=== PATIENT | male | born 1940 | race Caucasian/White ===

== ENCOUNTER 2017-06-02 11:09 | Emergency (ER) | payer MEDICARE, OTHER ==
[~2017-06-02] VITALS: Ht 165.1 cm; Wt 75.0 kg
[~2017-06-02 11:09] MED LIST: LIPITOR
[2017-06-02 16:03] VITALS: BP 169/78
[2017-06-02] MEDS ORDERED: BACITRACIN ZINC OINT UDPKT TOP ONE (16:30)
== END 2017-06-02 17:55 | disposition home or self-care (01) ==
LOC: ER 11:56
DX: S01.81XA Laceration without foreign body of other part of head, initial encounter (principal); E78.00 Pure hypercholesterolemia, unspecified; G80.9 Cerebral palsy, unspecified; Z86.73 Personal history of transient ischemic attack (TIA), and cerebral infarction without residual deficits; W18.30XA Fall on same level, unspecified, initial encounter; Y93.89 Activity, other specified; Y92.89 Other specified places as the place of occurrence of the external cause; Y99.8 Other external cause status
CPT/HCPCS: 12011; 70450; 70486; 99284

== ENCOUNTER → 2018-02-24 | Outpatient (CLI) | payer MEDICARE, OTHER | END | disposition home or self-care (01) | LOC: MRI 09:41 | PROVIDERS: ATTEND Internal Medicine Pulmonary Disease | DX: I67.82 Cerebral ischemia (principal); G31.89 Other specified degenerative diseases of nervous system | CPT/HCPCS: 70551 ==

== ENCOUNTER 2018-09-14 09:12 | Emergency (ER) | payer MEDICARE, OTHER ==
[~2018-09-14] VITALS: Ht 167.6 cm; Wt 73.0 kg
[2018-09-14 14:37] LABS: EOSINOPHILS % 1.1 % (0.0-5.0); HEMATOCRIT. 44.1 % (42.0-52.0); HEMOGLOBIN. 14.9 g/dL (14.0-18.0); LYMPHOCYTES % 22.9 % (20.0-50.0); MEAN CORPUSCULAR HEMOGLOBIN 28.8 pg (28.0-32.0); MEAN CORPUSCULAR VOLUME 85.2 fL (80.0-94.0); MEAN PLATELET VOLUME 9.1 fl (7.4-10.4); MONOCYTES % 6.3 % (2.0-8.0); NEUTROPHILS % 68.7 % (40.0-76.0); PLATELET 204 x1000/uL (130-400); RED BLOOD CELL COUNT 5.18 mill/uL (4.7-6.1); RED CELL DISTRIBUTION WIDTH 21.4 % (11.6-14.6)
[2018-09-14 14:46] LABS: PARTIAL THROMBOPLASTIN TIME 26.7 sec (23.4-31.0); PROTHROMBIN TIME 10.4 sec (9.6-11.0)
[2018-09-14] MEDS ORDERED: ACETAMINOPHEN 325MG TABLET PO STA (14:58)
[2018-09-14 15:10] VITALS: BP 125/85
== END 2018-09-14 15:11 | disposition home or self-care (01) ==
LOC: ER 09:12
DX: S70.01XA Contusion of right hip, initial encounter (principal); E78.00 Pure hypercholesterolemia, unspecified; I69.351 Hemiplegia and hemiparesis following cerebral infarction affecting right dominant side; Z98.890 Other specified postprocedural states; W01.0XXA Fall on same level from slipping, tripping and stumbling without subsequent striking against object, initial encounter; Y93.89 Activity, other specified; Y92.018 Other place in single-family (private) house as the place of occurrence of the external cause
CPT/HCPCS: 36415; 72192; 73502; 73700; 99284

== ENCOUNTER 2019-11-12 16:37 | Inpatient (IN) | payer MEDICARE, OTHER ==
[~2019-11-12] VITALS: Ht 170.2 cm; Wt 67.1 kg
[~2019-11-12 16:37] MED LIST changes: +AMLO2.5T45 PO; +ATOR10TA MT; +COR3 PO; -LIPITOR
[2019-11-12 18:18] LABS: BASOPHILS % 0.7 % (0.0-2.0); EOSINOPHILS % 0.5 % (0.0-5.0); HEMATOCRIT. 38.4 % (42.0-52.0); HEMOGLOBIN. 13.2 g/dL (14.0-18.0); LYMPHOCYTES % 22.9 % (20.0-50.0); MEAN CORPUSCULAR HEMOGLOBIN 29.6 pg (28.0-32.0); MEAN CORPUSCULAR VOLUME 86.4 fL (80.0-94.0); MEAN PLATELET VOLUME 9.8 fl (7.4-10.4); MONOCYTES % 5.3 % (2.0-8.0); NEUTROPHILS % 70.6 % (40.0-76.0); PLATELET 174 x1000/uL (130-400); RED BLOOD CELL COUNT 4.45 mill/uL (4.7-6.1); RED CELL DISTRIBUTION WIDTH 18.8 % (11.6-14.6)
[2019-11-12 18:23] LABS: CHLORIDE 108 mEq/L (98-107)
[2019-11-12] MEDS ORDERED: PIPERACILLIN SODIUM/TAZOBACTAM 4.5 G in DEXT 5% WATER 100 ML IV SCH (19:00)
[2019-11-12] MEDS ORDERED: IOHEXOL-300 100 ML BOTTLE ONE (19:30)
[2019-11-12] MEDS ORDERED: DEXAMETHASONE 4MG/ML 1ML VIAL IV NR (20:30)
[2019-11-12] MEDS: CIPROFLOXACIN 0.3% OPHTH SOLN 2.5ML BOTHEYE SCH (21:00)
[2019-11-12] MEDS ORDERED: CEFAZOLIN 1000MG PREMIX 50 ML IV ONE (23:55)
[2019-11-13] MEDS: NEO/POLYMYX B SULF/DEXAMETH OPHTH OINT 3.5GM RIGHTEYE SCH ×4 (00:19→23:22)
[2019-11-13] MEDS ORDERED: CEFAZOLIN 1000MG PREMIX 50 ML IV ONE (06:30)
[2019-11-13] MEDS: CIPROFLOXACIN 0.3% OPHTH SOLN 2.5ML BOTHEYE SCH ×3 (10:17→22:12)
[2019-11-13] MEDS ORDERED: ACETAMINOPHEN 325MG TABLET PO PRN (14:45)
[2019-11-13 15:56] VITALS: BP 138/68
[2019-11-13 16:00] VITALS: BP 150/71
[2019-11-13] MEDS: CEFAZOLIN 1000MG PREMIX 50 ML IV SCH ×2 (17:28→23:33)
[2019-11-13] MEDS: ENOXAPARIN 40MG/0.4ML SYR SUBCUT SCH (17:28)
[2019-11-13 20:00] VITALS: BP 110/55
[2019-11-13] MEDS ORDERED: CEFAZOLIN SODIUM 1000MG/VIAL IV SCH (22:00)
[2019-11-13] MEDS: ATORVASTATIN CALCIUM 40MG TABLET PO SCH (22:12)
[2019-11-14] VITALS: BP 122/46
[2019-11-14 04:00] VITALS: BP 132/57
[2019-11-14] MEDS: NEO/POLYMYX B SULF/DEXAMETH OPHTH OINT 3.5GM RIGHTEYE SCH ×2 (05:29→12:42)
[2019-11-14 08:00] VITALS: BP 145/61
[2019-11-14] MEDS: CEFAZOLIN 1000MG PREMIX 50 ML IV SCH ×3 (08:30→23:36)
[2019-11-14] MEDS: CIPROFLOXACIN 0.3% OPHTH SOLN 2.5ML BOTHEYE SCH ×4 (08:31→20:23)
[2019-11-14 12:00] VITALS: BP 116/63
[2019-11-14] MEDS ORDERED: DEXAMETHASONE 4MG/ML 1ML VIAL IV NR (13:45)
[2019-11-14 16:00] VITALS: BP 122/67
[2019-11-14] MEDS: ENOXAPARIN 40MG/0.4ML SYR SUBCUT SCH (16:49)
[2019-11-14] MEDS: NEOMY SULF/BACITRAC ZN/POLY/HC 1 APP TUBE RIGHTEYE SCH ×2 (17:10→23:37)
[2019-11-14] MEDS: PREDNISOLONE ACETATE 1% OPHTH DROPS 5ML BOTHEYE SCH ×2 (17:10→23:37)
[2019-11-14 20:00] VITALS: BP 115/68
[2019-11-14] MEDS: ATORVASTATIN CALCIUM 40MG TABLET PO SCH (20:22)
[2019-11-15] VITALS: BP 133/60
[2019-11-15 04:00] VITALS: BP_SYST 127; BP_SYST 133; BP_DIAS 66; BP_DIAS 71
[2019-11-15] MEDS: PREDNISOLONE ACETATE 1% OPHTH DROPS 5ML BOTHEYE SCH ×3 (06:45→17:20)
[2019-11-15] MEDS: NEOMY SULF/BACITRAC ZN/POLY/HC 1 APP TUBE RIGHTEYE SCH ×3 (06:45→17:20)
[2019-11-15 08:00] VITALS: BP 122/59
[2019-11-15] MEDS: CEFAZOLIN 1000MG PREMIX 50 ML IV SCH ×2 (09:32→16:59)
[2019-11-15] MEDS: CIPROFLOXACIN 0.3% OPHTH SOLN 2.5ML BOTHEYE SCH ×4 (09:32→21:15)
[2019-11-15 12:00] VITALS: BP 136/73
[2019-11-15 16:00] VITALS: BP 127/60
[2019-11-15] MEDS: ENOXAPARIN 40MG/0.4ML SYR SUBCUT SCH (16:59)
[2019-11-15 20:00] VITALS: BP 116/53
[2019-11-15] MEDS: ATORVASTATIN CALCIUM 40MG TABLET PO SCH (21:14)
[2019-11-16] VITALS: BP 100/51
[2019-11-16] MEDS: CEFAZOLIN 1000MG PREMIX 50 ML IV SCH ×2 (00:17→09:56)
[2019-11-16] MEDS: PREDNISOLONE ACETATE 1% OPHTH DROPS 5ML BOTHEYE SCH ×3 (00:17→13:01)
[2019-11-16] MEDS: NEOMY SULF/BACITRAC ZN/POLY/HC 1 APP TUBE RIGHTEYE SCH ×3 (00:17→13:01)
[2019-11-16 04:00] VITALS: BP 118/61
[2019-11-16 08:00] VITALS: BP 145/66
[2019-11-16] MEDS: CIPROFLOXACIN 0.3% OPHTH SOLN 2.5ML BOTHEYE SCH ×2 (09:12→13:01)
== END 2019-11-16 16:51 | disposition home or self-care (01) | DRG 121 ==
LOC: ER 16:37 → 6EST 19:58 → ENRESERV 11-13 12:57
PROVIDERS: ADMIT Internal Medicine Pulmonary Disease; ATTEND Internal Medicine Pulmonary Disease
DX: H05.011 Cellulitis of right orbit (principal); G81.91 Hemiplegia, unspecified affecting right dominant side; S05.11XA Contusion of eyeball and orbital tissues, right eye, initial encounter; E78.5 Hyperlipidemia, unspecified; M47.812 Spondylosis without myelopathy or radiculopathy, cervical region; E78.00 Pure hypercholesterolemia, unspecified; R29.6 Repeated falls; W18.39XA Other fall on same level, initial encounter; Z86.73 Personal history of transient ischemic attack (TIA), and cerebral infarction without residual deficits; Z79.899 Other long term (current) drug therapy; Y93.89 Activity, other specified; Y92.89 Other specified places as the place of occurrence of the external cause; Y99.8 Other external cause status; Z90.49 Acquired absence of other specified parts of digestive tract
CPT/HCPCS: 36415; 70481; 80053; 85025; 96365; 97116; 97162; 97535; 99285; J0690; J1100; J1650; J2543; J7060; Q9967

== ENCOUNTER 2019-12-11 06:10 | Emergency (ER) | payer MEDICARE, OTHER ==
[~2019-12-11] VITALS: Ht 167.6 cm; Wt 73.0 kg
[2019-12-11] MEDS ORDERED: BACITRACIN ZINC OINT UDPKT TOP ONE (07:30)
[2019-12-11] MEDS ORDERED: TETANUS, DIPHTHERIA, PERTUSSIS VAC/PF 0.5ML (>7YR OLD) IM ONE (07:30)
[2019-12-11 10:25] VITALS: BP 151/77
== END 2019-12-11 10:26 | disposition home or self-care (01) ==
LOC: ER 06:10
DX: S00.81XA Abrasion of other part of head, initial encounter (principal); I10 Essential (primary) hypertension; G93.89 Other specified disorders of brain; Z79.899 Other long term (current) drug therapy; W01.0XXA Fall on same level from slipping, tripping and stumbling without subsequent striking against object, initial encounter; Y93.89 Activity, other specified; Y92.89 Other specified places as the place of occurrence of the external cause; Y99.8 Other external cause status
CPT/HCPCS: 70486; 72170; 90471; 90715; 99285

== ENCOUNTER → 2020-03-26 | Outpatient (CLI) | payer MEDICARE, OTHER | END | disposition home or self-care (01) | LOC: RAD 11:27 | PROVIDERS: ATTEND Internal Medicine Pulmonary Disease | DX: Z01.812 Encounter for preprocedural laboratory examination (principal); I21.29 ST elevation (STEMI) myocardial infarction involving other sites | CPT/HCPCS: 71045; 93005 ==

== ENCOUNTER 2020-06-07 10:25 | Inpatient (IN) | payer MEDICARE, OTHER ==
[~2020-06-07] VITALS: Ht 167.6 cm; Wt 47.6 kg
[2020-06-07] MEDS ORDERED: SODIUM CHLORIDE 0.9% 500 ML IV ONE (10:45)
[2020-06-07 11:07] LABS: BASOPHILS % 0.4 % (0.0-2.0); EOSINOPHILS % 0.2 % (0.0-5.0); HEMATOCRIT. 45.7 % (42.0-52.0); HEMOGLOBIN. 15.2 g/dL (14.0-18.0); LYMPHOCYTES % 16.6 % (20.0-50.0); MEAN CORPUSCULAR HEMOGLOBIN 28.4 pg (28.0-32.0); MEAN CORPUSCULAR VOLUME 85.5 fL (80.0-94.0); MEAN PLATELET VOLUME 9.1 fl (7.4-10.4); MONOCYTES % 6.1 % (2.0-8.0); NEUTROPHILS % 76.7 % (40.0-76.0); PLATELET 126 x1000/uL (130-400); RED BLOOD CELL COUNT 5.35 mill/uL (4.7-6.1); RED CELL DISTRIBUTION WIDTH 21.1 % (11.6-14.6)
[2020-06-07 11:20] LABS: CHLORIDE 104 mEq/L (98-107)
[2020-06-07] MEDS ORDERED: LEVOFLOXACIN 750MG PREMIX 150 ML IV ONE (11:30)
[2020-06-07 11:32] LABS: ETHANOL BLOOD < 10 mg/dL
[2020-06-07 11:34] LABS: CREATINE KINASE 155 IU/L (39-308)
[2020-06-07 11:40] LABS: CLARITY URINE CLOUDY (CLEAR); COLOR URINE DARK YELLOW (YELLOW); KETONES URINE TRACE (NEGATIVE); LEUKOCYTE ESTERASE URINE 2+ (NEGATIVE); NITRITE URINE POSITIVE (NEGATIVE); OCCULT BLOOD URINE 3+ (NEGATIVE); PH URINE 5.5 (4.5-8.0); PROTEIN URINE 1+ (NEGATIVE); SPECIFIC GRAVITY URINE 1.028 (1.005-1.030)
[2020-06-07 12:43] LABS: *AMPHETAMINES SCREEN URINE NEGATIVE (NEGATIVE); *BARBITURATES SCREEN URINE NEGATIVE (NEGATIVE); *BENZODIAZEPINES SCREEN URINE NEGATIVE (NEGATIVE)
[2020-06-07 12:44] LABS: *COCAINE SCREEN URINE NEGATIVE (NEGATIVE); METHADONE URINE SCREEN NEGATIVE (NEGATIVE); OPIATES URINE SCREEN NEGATIVE (NEGATIVE); PHENCYCLIDINE URINE SCREEN NEGATIVE (NEGATIVE)
[2020-06-07 12:46] LABS: CANNABINOID URINE SCREEN NEGATIVE (NEGATIVE)
[2020-06-08] MEDS ORDERED: SULFAMETHOXAZOLE/TRIMETHOPRIM 800/160MG TABLET PO NR (18:00)
[2020-06-08] MEDS ORDERED: CEFTRIAXONE 1 G PREMIX 50 ML IV SCH (18:00)
[2020-06-08] MEDS ORDERED: ENOXAPARIN 40MG/0.4ML SYR SUBCUT NR (19:05)
[2020-06-08] MEDS: ATORVASTATIN CALCIUM 40MG TABLET PO SCH (21:02)
[2020-06-09 05:25] LABS: BASOPHILS % 0.2 % (0.0-2.0); EOSINOPHILS % 0.2 % (0.0-5.0); HEMATOCRIT. 42.2 % (42.0-52.0); HEMOGLOBIN. 13.9 g/dL (14.0-18.0); LYMPHOCYTES % 18.5 % (20.0-50.0); MEAN CORPUSCULAR HEMOGLOBIN 28.1 pg (28.0-32.0); MEAN CORPUSCULAR VOLUME 85.5 fL (80.0-94.0); MEAN PLATELET VOLUME 9.1 fl (7.4-10.4); MONOCYTES % 6.8 % (2.0-8.0); NEUTROPHILS % 74.3 % (40.0-76.0); PLATELET 125 x1000/uL (130-400); RED BLOOD CELL COUNT 4.94 mill/uL (4.7-6.1); RED CELL DISTRIBUTION WIDTH 21.9 % (11.6-14.6)
[2020-06-09 05:29] LABS: CHLORIDE 106 mEq/L (98-107)
[2020-06-09 05:38] LABS: PHOSPHORUS 3.2 mg/dL (2.5-4.9)
[2020-06-09 10:45] VITALS: BP 110/34
[2020-06-09] MEDS: ENOXAPARIN 40MG/0.4ML SYR SUBCUT SCH (14:25)
[2020-06-09] MEDS: SULFAMETHOXAZOLE/TRIMETHOPRIM 800/160MG TABLET PO SCH ×2 (14:25→21:50)
[2020-06-09 15:53] VITALS: BP 150/34
[2020-06-09 16:00] VITALS: BP 118/42
[2020-06-09] MEDS ORDERED: CEFTRIAXONE 1 G PREMIX 50 ML IV SCH (18:00)
[2020-06-09] MEDS: CEFTRIAXONE 1,000 MG in DEXTROSE 5% WATER 50 ML IV SCH (18:11)
[2020-06-09 20:00] VITALS: BP 120/59
[2020-06-09] MEDS: ATORVASTATIN CALCIUM 40MG TABLET PO SCH (21:50)
[2020-06-10] VITALS: BP 127/57
[2020-06-10 04:00] VITALS: BP 126/53
[2020-06-10] MEDS: ENOXAPARIN 40MG/0.4ML SYR SUBCUT SCH (08:52)
[2020-06-10] MEDS: SULFAMETHOXAZOLE/TRIMETHOPRIM 800/160MG TABLET PO SCH ×2 (08:52→21:15)
[2020-06-10 12:00] VITALS: BP 110/62
[2020-06-10 16:00] VITALS: BP 108/57
[2020-06-10] MEDS ORDERED: TEMAZEPAM 15MG CAPSULE PO PRN (18:15)
[2020-06-10] MEDS ORDERED: TEMAZEPAM 15MG CAPSULE PO SCH (18:15)
[2020-06-10] MEDS: CEFTRIAXONE 1,000 MG in DEXTROSE 5% WATER 50 ML IV SCH (19:17)
[2020-06-10 20:00] VITALS: BP 111/62
[2020-06-10] MEDS: ATORVASTATIN CALCIUM 40MG TABLET PO SCH (21:15)
[2020-06-10 23:32] LABS: CLARITY URINE TURBID (CLEAR); COLOR URINE ORANGE (YELLOW); KETONES URINE NEGATIVE (NEGATIVE); LEUKOCYTE ESTERASE URINE 2+ (NEGATIVE); NITRITE URINE POSITIVE (NEGATIVE); OCCULT BLOOD URINE 3+ (NEGATIVE); PROTEIN URINE 3+ (NEGATIVE); SPECIFIC GRAVITY URINE 1.034 (1.005-1.030)
[2020-06-11] VITALS: BP 115/53
[2020-06-11 04:00] VITALS: BP 115/53
[2020-06-11 08:00] VITALS: BP 120/59
[2020-06-11] MEDS: ENOXAPARIN 40MG/0.4ML SYR SUBCUT SCH (09:00)
[2020-06-11] MEDS: SULFAMETHOXAZOLE/TRIMETHOPRIM 800/160MG TABLET PO SCH ×2 (09:43→22:03)
[2020-06-11 12:00] VITALS: BP 112/52
[2020-06-11 16:00] VITALS: BP 101/58
[2020-06-11] MEDS: CEFTRIAXONE 1,000 MG in DEXTROSE 5% WATER 50 ML IV SCH (17:05)
[2020-06-11 20:00] VITALS: BP 111/55
[2020-06-11] MEDS: ATORVASTATIN CALCIUM 40MG TABLET PO SCH (22:03)
[2020-06-12] VITALS: BP 124/71
[2020-06-12 04:00] VITALS: BP 120/45
[2020-06-12 08:00] VITALS: BP 105/52
[2020-06-12] MEDS: SULFAMETHOXAZOLE/TRIMETHOPRIM 800/160MG TABLET PO SCH ×2 (09:16→22:22)
[2020-06-12] MEDS: ENOXAPARIN 40MG/0.4ML SYR SUBCUT SCH (09:16)
[2020-06-12 12:00] VITALS: BP 95/53
[2020-06-12 16:00] VITALS: BP 101/47
[2020-06-12 20:00] VITALS: BP 110/48
[2020-06-12] MEDS: ATORVASTATIN CALCIUM 40MG TABLET PO SCH (22:19)
[2020-06-12] MEDS: CEFTRIAXONE 1,000 MG in DEXTROSE 5% WATER 50 ML IV SCH (22:20)
[2020-06-13] VITALS (7 sets, daily range): BP systolic 94–139; BP diastolic 48–59
[2020-06-13] MEDS: ENOXAPARIN 40MG/0.4ML SYR SUBCUT SCH (10:00)
[2020-06-13] MEDS: SULFAMETHOXAZOLE/TRIMETHOPRIM 800/160MG TABLET PO SCH ×2 (10:01→21:36)
[2020-06-13] MEDS: CEFTRIAXONE 1,000 MG in DEXTROSE 5% WATER 50 ML IV SCH (17:38)
[2020-06-13] MEDS: ATORVASTATIN CALCIUM 40MG TABLET PO SCH (21:36)
== END 2020-06-13 22:20 | DRG 689 ==
LOC: ER 10:40 → MICUSO 11:45 → 7WST 06-09 08:00 → 5WST 06-11 22:30
PROVIDERS: ADMIT Internal Medicine Pulmonary Disease; ATTEND Internal Medicine Pulmonary Disease
DX: N12 Tubulo-interstitial nephritis, not specified as acute or chronic (principal); J18.9 Pneumonia, unspecified organism; I69.351 Hemiplegia and hemiparesis following cerebral infarction affecting right dominant side; G80.9 Cerebral palsy, unspecified; E78.5 Hyperlipidemia, unspecified; I10 Essential (primary) hypertension; I44.4 Left anterior fascicular block; D69.6 Thrombocytopenia, unspecified; I49.1 Atrial premature depolarization; M47.812 Spondylosis without myelopathy or radiculopathy, cervical region; R13.10 Dysphagia, unspecified; Z20.822 Contact with and (suspected) exposure to COVID-19; R25.2 Cramp and spasm; R47.1 Dysarthria and anarthria; R53.81 Other malaise; Z79.899 Other long term (current) drug therapy
CPT/HCPCS: 36415; 71045; 80048; 80053; 80305; 80320; 81003; 82140; 82550; 83605; 83735; 83880; 84100; 84443; 84484; 85025; 87426; 87635; 92610; 93005; 93306; 97116; 97162; 97166; 97530; 97535; J0696; J1650; J1956; J7040; J7060; A4315; G0480

== ENCOUNTER 2020-08-16 05:49 | Emergency (ER) | payer MEDICARE, OTHER ==
[~2020-08-16] VITALS: Ht 172.7 cm; Wt 73.0 kg
[2020-08-16 06:16] LABS: BASOPHILS % 0.7 % (0.0-2.0); EOSINOPHILS % 1.4 % (0.0-5.0); HEMATOCRIT. 40.8 % (42.0-52.0); HEMOGLOBIN. 13.4 g/dL (14.0-18.0); LYMPHOCYTES % 24.9 % (20.0-50.0); MEAN CORPUSCULAR HEMOGLOBIN 29.8 pg (28.0-32.0); MEAN CORPUSCULAR VOLUME 90.5 fL (80.0-94.0); MEAN PLATELET VOLUME 8.5 fl (7.4-10.4); MONOCYTES % 4.8 % (2.0-8.0); NEUTROPHILS % 68.2 % (40.0-76.0); PLATELET 199 x1000/uL (130-400); RED CELL DISTRIBUTION WIDTH 19.6 % (11.6-14.6)
[2020-08-16 06:23] LABS: CHLORIDE 110 mEq/L (98-107)
[2020-08-16 06:27] LABS: ETHANOL BLOOD < 10 mg/dL
[2020-08-16] MEDS ORDERED: ACETAMINOPHEN 325MG TABLET PO ONE (06:30)
[2020-08-16] MEDS ORDERED: TETANUS, DIPHTHERIA, PERTUSSIS VAC/PF 0.5ML (>7YR OLD) IM ONE (06:30)
[2020-08-16] MEDS ORDERED: BACITRACIN ZINC OINT UDPKT TOP ONE (06:30)
[2020-08-16] MEDS ORDERED: LIDOCAINE HCL/PF 1% 10 MG/ML 5ML VIAL IJ ONE (06:30)
[2020-08-16 09:50] VITALS: BP 146/70
== END 2020-08-16 09:50 | disposition home or self-care (01) ==
LOC: ER 05:49
DX: S01.111A Laceration without foreign body of right eyelid and periocular area, initial encounter (principal); I69.354 Hemiplegia and hemiparesis following cerebral infarction affecting left non-dominant side; E78.00 Pure hypercholesterolemia, unspecified; W18.09XA Striking against other object with subsequent fall, initial encounter; Y93.89 Activity, other specified; Y92.013 Bedroom of single-family (private) house as the place of occurrence of the external cause
CPT/HCPCS: 12011; 36415; 71045; 80053; 80320; 83880; 84484; 85025; 90715; 93005; 99285; G0480

== ENCOUNTER 2020-08-23 09:14 | Emergency (ER) | payer MEDICARE, OTHER ==
[~2020-08-23] VITALS: Ht 172.7 cm; Wt 66.0 kg
[2020-08-23 09:23] VITALS: BP 147/85
== END 2020-08-23 10:31 | disposition home or self-care (01) ==
LOC: ER 09:14
DX: Z48.02 Encounter for removal of sutures (principal)
CPT/HCPCS: 99281

== ENCOUNTER 2021-04-01 22:51 | Inpatient (IN) | payer MEDICARE, OTHER ==
[~2021-04-01] VITALS: Ht 167.6 cm; Wt 65.8 kg
[2021-04-01 22:51] VITALS: BP 136/75
[2021-04-01 23:00] VITALS: BP 136/75
[2021-04-02] MEDS ORDERED: ONDANSETRON HCL 4MG/2ML INJ IV PRN (02:30)
[2021-04-02] MEDS ORDERED: HYDROCODONE/ACETAMINOPHEN 5/325MG TABLET PO PRN (02:30)
[2021-04-02] MEDS ORDERED: NALOXONE HCL 0.4MG/ML VIAL IV PRN (02:45)
[2021-04-02 08:00] VITALS: BP 118/72
[2021-04-02] MEDS: CHOLECALCIFEROL (VIT D3) 400 UNIT TABLET PO SCH (09:00)
[2021-04-02] MEDS: ASPIRIN 81MG TABLET PO SCH (09:20)
[2021-04-02] MEDS: FAMOTIDINE 20MG TABLET PO SCH (09:21)
[2021-04-02] MEDS: MULTIVITAMINS,THER W-MINERALS TABLET PO SCH (09:21)
[2021-04-02 12:00] VITALS: BP 117/62
[2021-04-02 20:00] VITALS: BP 110/58
[2021-04-02] MEDS: SENNOSIDES/DOCUSATE SOD 8.6/50MG TABLET PO SCH (21:32)
[2021-04-03 07:56] VITALS: BP 119/59
[2021-04-03] MEDS: MULTIVITAMINS,THER W-MINERALS TABLET PO SCH (10:04)
[2021-04-03] MEDS: CHOLECALCIFEROL (VIT D3) 400 UNIT TABLET PO SCH (10:05)
[2021-04-03] MEDS: ASPIRIN 81MG TABLET PO SCH (10:05)
[2021-04-03] MEDS: FAMOTIDINE 20MG TABLET PO SCH (10:05)
[2021-04-03 16:58] LABS: BASOPHILS % 0.8 % (0.0-2.0); EOSINOPHILS % 2.5 % (0.0-5.0); HEMATOCRIT. 44.5 % (42.0-52.0); HEMOGLOBIN. 14.7 g/dL (14.0-18.0); LYMPHOCYTES % 25.7 % (20.0-50.0); MEAN CORPUSCULAR HEMOGLOBIN 30.3 pg (28.0-32.0); MEAN CORPUSCULAR VOLUME 91.9 fL (80.0-94.0); MONOCYTES % 5.3 % (2.0-8.0); NEUTROPHILS % 65.7 % (40.0-76.0); RED BLOOD CELL COUNT 4.84 mill/uL (4.7-6.1)
[2021-04-03 17:04] LABS: CHLORIDE 107 mEq/L (98-107)
[2021-04-03 17:09] LABS: TOTAL IRON BINDING CAPACITY 277 ug/dL (250-450)
[2021-04-03 17:33] LABS: FERRITIN 162 ng/mL (22-322)
[2021-04-03 17:34] LABS: FOLIC ACID (FOLATE) SERUM > 20.00 ng/mL (>5.38)
[2021-04-03 17:37] LABS: VITAMIN B12 SERUM 709 pg/mL (211-911)
[2021-04-03 20:00] VITALS: BP 100/52
[2021-04-03] MEDS: SENNOSIDES/DOCUSATE SOD 8.6/50MG TABLET PO SCH (20:22)
[2021-04-03 20:52] LABS: MEAN PLATELET VOLUME 9.5 fl (7.4-10.4); PLATELET 201 x1000/uL (130-400)
[2021-04-03] MEDS: ENOXAPARIN 40MG/0.4ML SYR SUBCUT SCH (21:36)
[2021-04-04 08:00] VITALS: BP 115/64
[2021-04-04] MEDS ORDERED: CYANOCOBALAMIN 1000MCG/ML VIAL IM SCH (09:30)
[2021-04-04] MEDS: FAMOTIDINE 20MG TABLET PO SCH (10:21)
[2021-04-04] MEDS: MULTIVITAMINS,THER W-MINERALS TABLET PO SCH (10:21)
[2021-04-04] MEDS: ASPIRIN 81MG TABLET PO SCH (10:21)
[2021-04-04] MEDS: CHOLECALCIFEROL (VIT D3) 400 UNIT TABLET PO SCH (10:21)
[2021-04-04 20:00] VITALS: BP 116/58
[2021-04-04] MEDS: SENNOSIDES/DOCUSATE SOD 8.6/50MG TABLET PO SCH (21:30)
[2021-04-04] MEDS: ENOXAPARIN 40MG/0.4ML SYR SUBCUT SCH (21:30)
[2021-04-05 08:00] VITALS: BP 122/55
[2021-04-05] MEDS: FAMOTIDINE 20MG TABLET PO SCH (09:15)
[2021-04-05] MEDS: MULTIVITAMINS,THER W-MINERALS TABLET PO SCH (09:16)
[2021-04-05] MEDS: ASPIRIN 81MG TABLET PO SCH (09:16)
[2021-04-05] MEDS: CHOLECALCIFEROL (VIT D3) 400 UNIT TABLET PO SCH (09:16)
[2021-04-05 20:00] VITALS: BP 101/50
[2021-04-05] MEDS: ENOXAPARIN 40MG/0.4ML SYR SUBCUT SCH (20:45)
[2021-04-05] MEDS: SENNOSIDES/DOCUSATE SOD 8.6/50MG TABLET PO SCH (20:45)
[2021-04-06 08:00] VITALS: BP 113/54
[2021-04-06] MEDS: ASPIRIN 81MG TABLET PO SCH (08:38)
[2021-04-06] MEDS: CHOLECALCIFEROL (VIT D3) 400 UNIT TABLET PO SCH (08:39)
[2021-04-06] MEDS: FAMOTIDINE 20MG TABLET PO SCH (08:39)
[2021-04-06] MEDS: MULTIVITAMINS,THER W-MINERALS TABLET PO SCH (08:39)
[2021-04-06 20:00] VITALS: BP 116/61
[2021-04-06] MEDS ORDERED: ATORVASTATIN CALCIUM 40MG TABLET PO SCH (21:00)
[2021-04-06] MEDS: ATORVASTATIN CALCIUM 40MG TABLET PO SCH (21:53)
[2021-04-06] MEDS: SENNOSIDES/DOCUSATE SOD 8.6/50MG TABLET PO SCH (21:53)
[2021-04-06] MEDS: ENOXAPARIN 40MG/0.4ML SYR SUBCUT SCH (21:54)
[2021-04-07 08:00] VITALS: BP 126/61
[2021-04-07] MEDS: MULTIVITAMINS,THER W-MINERALS TABLET PO SCH (09:12)
[2021-04-07] MEDS: ASPIRIN 81MG TABLET PO SCH (09:12)
[2021-04-07] MEDS: FAMOTIDINE 20MG TABLET PO SCH (09:12)
[2021-04-07] MEDS: CHOLECALCIFEROL (VIT D3) 400 UNIT TABLET PO SCH (09:12)
[2021-04-07 20:00] VITALS: BP 104/53
[2021-04-07] MEDS: SENNOSIDES/DOCUSATE SOD 8.6/50MG TABLET PO SCH (21:09)
[2021-04-07] MEDS: ENOXAPARIN 40MG/0.4ML SYR SUBCUT SCH (21:09)
[2021-04-07] MEDS: ATORVASTATIN CALCIUM 40MG TABLET PO SCH (21:09)
[2021-04-08 07:19] LABS: BASOPHILS % 0.9 % (0.0-2.0); HEMATOCRIT. 40.2 % (42.0-52.0); HEMOGLOBIN. 13.3 g/dL (14.0-18.0); LYMPHOCYTES % 31.7 % (20.0-50.0); MEAN CORPUSCULAR HEMOGLOBIN 29.7 pg (28.0-32.0); MONOCYTES % 5.1 % (2.0-8.0); NEUTROPHILS % 59.3 % (40.0-76.0); PLATELET 227 x1000/uL (130-400); RED BLOOD CELL COUNT 4.46 mill/uL (4.7-6.1); RED CELL DISTRIBUTION WIDTH 17.1 % (11.6-14.6)
[2021-04-08 07:27] LABS: CHLORIDE 111 mEq/L (98-107)
[2021-04-08 08:00] VITALS: BP 117/57
[2021-04-08] MEDS: CHOLECALCIFEROL (VIT D3) 400 UNIT TABLET PO SCH (09:00)
[2021-04-08] MEDS: ASPIRIN 81MG TABLET PO SCH (09:50)
[2021-04-08] MEDS: FAMOTIDINE 20MG TABLET PO SCH (09:51)
[2021-04-08] MEDS: MULTIVITAMINS,THER W-MINERALS TABLET PO SCH (09:51)
[2021-04-08] MEDS: SENNOSIDES/DOCUSATE SOD 8.6/50MG TABLET PO SCH (22:14)
[2021-04-08] MEDS: ENOXAPARIN 40MG/0.4ML SYR SUBCUT SCH (22:14)
[2021-04-08] MEDS: ATORVASTATIN CALCIUM 40MG TABLET PO SCH (22:14)
[2021-04-09] MEDS: ASPIRIN 81MG TABLET PO SCH (09:24)
[2021-04-09] MEDS: FAMOTIDINE 20MG TABLET PO SCH (09:25)
[2021-04-09] MEDS: MULTIVITAMINS,THER W-MINERALS TABLET PO SCH (09:25)
[2021-04-09] MEDS: CHOLECALCIFEROL (VIT D3) 400 UNIT TABLET PO SCH (09:25)
[2021-04-09] MEDS: ACETAMINOPHEN 325MG TABLET PO PRN ×2 (09:26→18:26)
[2021-04-09 20:00] VITALS: BP 108/56
[2021-04-09] MEDS: ATORVASTATIN CALCIUM 40MG TABLET PO SCH (22:25)
[2021-04-09] MEDS: SENNOSIDES/DOCUSATE SOD 8.6/50MG TABLET PO SCH (22:25)
[2021-04-09] MEDS: ENOXAPARIN 40MG/0.4ML SYR SUBCUT SCH (22:26)
[2021-04-10 07:52] VITALS: BP 131/63
[2021-04-10] MEDS: FAMOTIDINE 20MG TABLET PO SCH (08:42)
[2021-04-10] MEDS: CHOLECALCIFEROL (VIT D3) 400 UNIT TABLET PO SCH (08:42)
[2021-04-10] MEDS: MULTIVITAMINS,THER W-MINERALS TABLET PO SCH (08:42)
[2021-04-10] MEDS: ASPIRIN 81MG TABLET PO SCH (08:42)
[2021-04-10 08:44] LABS: BASOPHILS % 0.8 % (0.0-2.0); EOSINOPHILS % 3.8 % (0.0-5.0); HEMATOCRIT. 39.6 % (42.0-52.0); HEMOGLOBIN. 13.3 g/dL (14.0-18.0); MEAN CORPUSCULAR HEMOGLOBIN 30.1 pg (28.0-32.0); MEAN CORPUSCULAR VOLUME 89.8 fL (80.0-94.0); MONOCYTES % 4.8 % (2.0-8.0); NEUTROPHILS % 59.6 % (40.0-76.0); PLATELET 218 x1000/uL (130-400); RED BLOOD CELL COUNT 4.42 mill/uL (4.7-6.1); RED CELL DISTRIBUTION WIDTH 17.5 % (11.6-14.6)
[2021-04-10 09:00] LABS: CHLORIDE 109 mEq/L (98-107)
[2021-04-10 19:06] LABS: 25-HYDROXY VITAMIN D3 43 ng/mL (.)
[2021-04-10 20:00] VITALS: BP 103/53
[2021-04-10] MEDS: ENOXAPARIN 40MG/0.4ML SYR SUBCUT SCH (21:00)
[2021-04-10] MEDS: ATORVASTATIN CALCIUM 40MG TABLET PO SCH (21:12)
[2021-04-10] MEDS: SENNOSIDES/DOCUSATE SOD 8.6/50MG TABLET PO SCH (21:12)
[2021-04-11 08:09] VITALS: BP 116/60
[2021-04-11] MEDS: FAMOTIDINE 20MG TABLET PO SCH (09:41)
[2021-04-11] MEDS: CHOLECALCIFEROL (VIT D3) 400 UNIT TABLET PO SCH (09:41)
[2021-04-11] MEDS: MULTIVITAMINS,THER W-MINERALS TABLET PO SCH (09:41)
[2021-04-11] MEDS: ASPIRIN 81MG TABLET PO SCH (09:41)
[2021-04-11] MEDS ORDERED: ERGOCALCIFEROL 50000UNITS CAPSULE PO SCH (10:51)
[2021-04-11 20:00] VITALS: BP 101/54
[2021-04-11] MEDS: SENNOSIDES/DOCUSATE SOD 8.6/50MG TABLET PO SCH (21:00)
[2021-04-11] MEDS: ATORVASTATIN CALCIUM 40MG TABLET PO SCH (21:18)
[2021-04-11] MEDS: ENOXAPARIN 40MG/0.4ML SYR SUBCUT SCH (21:19)
[2021-04-12 08:00] VITALS: BP 105/61
[2021-04-12] MEDS: CHOLECALCIFEROL (VIT D3) 400 UNIT TABLET PO SCH (08:25)
[2021-04-12] MEDS: MULTIVITAMINS,THER W-MINERALS TABLET PO SCH (08:25)
[2021-04-12] MEDS: ASPIRIN 81MG TABLET PO SCH (08:25)
[2021-04-12] MEDS: FAMOTIDINE 20MG TABLET PO SCH (08:25)
[2021-04-12 20:00] VITALS: BP 113/56
[2021-04-12 20:31] VITALS: BP 113/56
[2021-04-12] MEDS: SENNOSIDES/DOCUSATE SOD 8.6/50MG TABLET PO SCH (21:17)
[2021-04-12] MEDS: ENOXAPARIN 40MG/0.4ML SYR SUBCUT SCH (21:17)
[2021-04-12] MEDS: ATORVASTATIN CALCIUM 40MG TABLET PO SCH (21:17)
[2021-04-13 08:00] VITALS: BP 123/62
[2021-04-13 09:08] LABS: BASOPHILS % 0.7 % (0.0-2.0); EOSINOPHILS % 2.5 % (0.0-5.0); HEMATOCRIT. 43.6 % (42.0-52.0); HEMOGLOBIN. 14.4 g/dL (14.0-18.0); LYMPHOCYTES % 22.9 % (20.0-50.0); MEAN CORPUSCULAR HEMOGLOBIN 29.5 pg (28.0-32.0); MEAN CORPUSCULAR VOLUME 89.4 fL (80.0-94.0); MEAN PLATELET VOLUME 9.4 fl (7.4-10.4); MONOCYTES % 2.5 % (2.0-8.0); NEUTROPHILS % 71.4 % (40.0-76.0); PLATELET 220 x1000/uL (130-400); RED BLOOD CELL COUNT 4.88 mill/uL (4.7-6.1); RED CELL DISTRIBUTION WIDTH 17.8 % (11.6-14.6)
[2021-04-13 09:10] LABS: CHLORIDE 110 mEq/L (98-107)
[2021-04-13] MEDS: FAMOTIDINE 20MG TABLET PO SCH (09:35)
[2021-04-13] MEDS: ASPIRIN 81MG TABLET PO SCH (09:35)
[2021-04-13] MEDS: MULTIVITAMINS,THER W-MINERALS TABLET PO SCH (09:35)
[2021-04-13] MEDS: CHOLECALCIFEROL (VIT D3) 400 UNIT TABLET PO SCH (09:35)
[2021-04-13] MEDS: NEOMY SULF/BACITRAC ZN/POLY OINT 28GM TOP SCH (19:23)
[2021-04-13 20:00] VITALS: BP 108/50
[2021-04-13] MEDS: ATORVASTATIN CALCIUM 40MG TABLET PO SCH (21:49)
[2021-04-13] MEDS: ENOXAPARIN 40MG/0.4ML SYR SUBCUT SCH (21:49)
[2021-04-13] MEDS: SENNOSIDES/DOCUSATE SOD 8.6/50MG TABLET PO SCH (21:49)
[2021-04-14] MEDS: ASPIRIN 81MG TABLET PO SCH (09:04)
[2021-04-14] MEDS: FAMOTIDINE 20MG TABLET PO SCH (09:05)
[2021-04-14] MEDS: MULTIVITAMINS,THER W-MINERALS TABLET PO SCH (09:05)
[2021-04-14] MEDS: CHOLECALCIFEROL (VIT D3) 400 UNIT TABLET PO SCH (09:05)
[2021-04-14] MEDS: ACETAMINOPHEN 325MG TABLET PO PRN (09:12)
[2021-04-14] MEDS: NEOMY SULF/BACITRAC ZN/POLY OINT 28GM TOP SCH (11:10)
[2021-04-14 20:00] VITALS: BP 102/55
[2021-04-14] MEDS: ENOXAPARIN 40MG/0.4ML SYR SUBCUT SCH (21:06)
[2021-04-14] MEDS: ATORVASTATIN CALCIUM 40MG TABLET PO SCH (21:06)
[2021-04-14] MEDS: SENNOSIDES/DOCUSATE SOD 8.6/50MG TABLET PO SCH (21:06)
[2021-04-15 08:00] VITALS: BP 118/69
[2021-04-15] MEDS: CHOLECALCIFEROL (VIT D3) 400 UNIT TABLET PO SCH (08:41)
[2021-04-15] MEDS: FAMOTIDINE 20MG TABLET PO SCH (08:41)
[2021-04-15] MEDS: ASPIRIN 81MG TABLET PO SCH (08:41)
[2021-04-15] MEDS: MULTIVITAMINS,THER W-MINERALS TABLET PO SCH (08:41)
[2021-04-15] MEDS: NEOMY SULF/BACITRAC ZN/POLY OINT 28GM TOP SCH (08:42)
[2021-04-15 11:47] VITALS: BP 118/69
== END 2021-04-15 14:08 | DRG 563 ==
PROVIDERS: ADMIT Physical Medicine & Rehabilitation Spinal Cord Injury Medicine; ATTEND Family Medicine Adult Medicine
DX: S82.52XA Displaced fracture of medial malleolus of left tibia, initial encounter for closed fracture (principal); I69.951 Hemiplegia and hemiparesis following unspecified cerebrovascular disease affecting right dominant side; R53.81 Other malaise; G80.9 Cerebral palsy, unspecified; I10 Essential (primary) hypertension; R47.1 Dysarthria and anarthria; D64.9 Anemia, unspecified; R29.6 Repeated falls; E55.9 Vitamin D deficiency, unspecified; Z20.822 Contact with and (suspected) exposure to COVID-19; Y93.89 Activity, other specified; Y92.89 Other specified places as the place of occurrence of the external cause; Y99.8 Other external cause status; Z82.49 Family history of ischemic heart disease and other diseases of the circulatory system; Z79.899 Other long term (current) drug therapy; Z90.49 Acquired absence of other specified parts of digestive tract; V78.4XXA Person boarding or alighting from bus injured in noncollision transport accident, initial encounter; M79.609 Pain in unspecified limb
CPT/HCPCS: 36415; 73590; 73610; 73630; 80048; 80053; 82306; 82607; 82728; 82746; 83540; 83550; 84134; 84443; 85025; 87426; 92523; 92610; 93970; 97110; 97112; 97116; 97162; 97166; 97530; 97535; 97542; A6261; J1650; J3420

== ENCOUNTER 2023-09-10 00:58 | Emergency (ER) | payer MEDICARE, OTHER, MEDICAID ==
[~2023-09-10] VITALS: Ht 167.6 cm; Wt 78.0 kg
[2023-09-10 01:00] VITALS: O2SAT 95
[2023-09-10 01:47] LABS: BASOPHILS % 0.6 % (0.0-2.0); DIFFERENTIAL COMMENT 0; EOSINOPHILS % 0.2 % (0.0-5.0); HEMOGLOBIN. 15.5 g/dL (14.0-18.0); LYMPHOCYTES % 14.4 % (20.0-50.0); MEAN CORPUSCULAR HEMOGLOBIN 29.8 pg (28.0-32.0); MEAN CORPUSCULAR HGB CONC 33.6 g/dL (31.0-37.0); MEAN CORPUSCULAR VOLUME 88.7 fL (80.0-94.0); MEAN PLATELET VOLUME 9.6 fl (7.4-10.4); MONOCYTES % 4.5 % (2.0-8.0); NEUTROPHILS % 80.3 % (40.0-76.0); PLATELET 203 x1000/uL (130-400); RED BLOOD CELL COUNT 5.18 mill/uL (4.7-6.1); RED CELL DISTRIBUTION WIDTH 18.2 % (11.6-14.6); WHITE BLOOD COUNT 12.9 x1000/uL (4.5-11.0)
[2023-09-10 02:06] LABS: ALANINE AMINOTRANSFERASE < 7 IU/L (10-49); ALBUMIN 4.3 g/dL (3.2-4.8); ASPARTATE AMINOTRANSFERASE 13 IU/L (<34); BILIRUBIN TOTAL 0.7 mg/dL (0.1-1.0); CALCIUM 9.1 mg/dL (8.7-10.4); CARBON DIOXIDE 30 mEq/L (21-32); CHLORIDE 104 mEq/L (98-107); CREATININE 0.8 mg/dL (0.6-1.3); GLUCOSE 133 mg/dL (70-105); POTASSIUM 4.6 mEq/L (3.5-5.1); PROTEIN TOTAL 7.4 g/dL (6.0-8.3); SODIUM 139 mEq/L (136-145); TROPONIN I HIGH SENSITIVITY 26 ng/L (3.0-53); UREA NITROGEN BLOOD 18 mg/dL (9-23)
[2023-09-10] MEDS: SODIUM CHLORIDE 0.9% 500 ML IV ONE (02:22)
[2023-09-10] MEDS: ONDANSETRON HCL 4MG/2ML INJ IV STA (02:22)
[2023-09-10 02:25] LABS: PROTHROMBIN TIME 10.9 sec (9.6-11.0)
[2023-09-10 03:01] VITALS: TEMP 97.9
[2023-09-10 03:41] LABS: TROPONIN I HIGH SENSITIVITY 26 ng/L (3.0-53)
[2023-09-10 06:24] VITALS: BP 140/81; PULSE 79; RESP 16
== END 2023-09-10 07:18 ==
LOC: ER 00:58 → SUPCPDRO 07:06 → ER 07:18
DX: R11.2 Nausea with vomiting, unspecified (principal); I10 Essential (primary) hypertension; E78.00 Pure hypercholesterolemia, unspecified; Z98.890 Other specified postprocedural states; Z86.73 Personal history of transient ischemic attack (TIA), and cerebral infarction without residual deficits
CPT/HCPCS: 99285; 74176; 96374; 96361; 80053; 85025; 85610; 86850; 86900; 86901; 84484; 36415; 93005; J2405; J7040